=== PATIENT | male | born 1990 | race Caucasian/White ===

== ENCOUNTER 2024-06-01 21:40 | Emergency (ER) | payer OTHER ==
[2024-06-01 21:48] VITALS: BP 148/95; PULSE 107; RESP 20; TEMP 97.1; BMI 29.9
[2024-06-01] MEDS ORDERED: IBUPROFEN 100 MG/5 ML UNIT DOSE CUPS ONE (22:27)
[2024-06-01] MEDS: IBUPROFEN 100 MG/5 ML UNIT DOSE CUPS PO ONE (22:28)
== END 2024-06-01 22:55 | disposition home or self-care (01) ==
LOC: JERFT 21:40
DX: S93.401A Sprain of unspecified ligament of right ankle, initial encounter (principal); X50.1XXA Overexertion from prolonged static or awkward postures, initial encounter
CPT/HCPCS: 73610-TC-RT-FY; 73630-TC-RT-FY; 99283-25